=== PATIENT | female | born 1930 | race Hispanic/Latino ===

== ENCOUNTER 2016-12-29 12:52 | Emergency (ER) | payer MEDICARE, BC ==
[2016-12-29 12:52] VITALS: BMI 26.2
[2016-12-29 13:08] VITALS: BP 148/60; PULSE 62; RESP 16; TEMP 98.4; O2SAT 95
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
[2016-12-29] MEDS ORDERED: Naproxen 500 MG TAB PO ONE (13:48)
[2016-12-29] MEDS ORDERED: Naproxen 500 MG TAB PO STA (14:55)
--- NOTE | 2016-12-29 16:11 | RAD ---
PROCEDURE: Left Ankle Radiographs. HISTORY: Lateral malleolar tenderness following a traumatic event. Bold COMPARISON: None FINDINGS: BONES: Nondisplaced fracture distal fibula. This is below the ankle mortise. The finding is marked on the study for review. JOINTS: Normal. No osteoarthritis. Ankle mortise maintained. Talar dome intact SOFT TISSUES: Soft tissue swelling attests to the acuity of the fracture. OTHER FINDINGS: None. IMPRESSION: Acute distal fibular fracture. Otherwise unremarkable study.
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
== END 2016-12-29 17:14 | disposition home or self-care (01) ==
LOC: H.ER 12:52
DX: S82.832A Other fracture of upper and lower end of left fibula, initial encounter for closed fracture (principal); W22.8XXA Striking against or struck by other objects, initial encounter; Y92.89 Other specified places as the place of occurrence of the external cause

== ENCOUNTER 2017-04-18 12:51 | Emergency (ER) | payer MEDICARE ==
[2017-04-18 12:51] VITALS: BMI 26.2
--- NOTE | 2017-04-18 13:21 | ED PDOC ---
HPI: Abdomen Time Seen by Provider: 04/18/17 13:10 Chief Complaint (Nursing): Abdominal Pain Chief Complaint (Provider): Abdominal Pain History Per: Patient, Family (son) History/Exam Limitations: no limitations Onset/Duration Of Symptoms: Days (x3) Current Symptoms Are (Timing): Still Present Additional Complaint(s): 86 year old female with medical history of CAD and bleeding ulcers, presents to the emergency department with son for an evaluation of black stools associated with upper abdominal pain and generalized weakness ongoing for 3 days. Denied any chest pain or bloody vomiting. Patient stated she does not use Apirin daily but had taken Aleve twice this week for headaches. PMD: Luis Mcnally MD Past Medical History Reviewed: Historical Data, Nursing Documentation, Vital Signs Vital Signs: Last Vital Signs Temp 97.5 F L 04/18/17 13:00 Pulse 62 04/18/17 13:00 Resp 16 04/18/17 13:00 BP 148/59 L 04/18/17 13:00 Pulse Ox 100 04/18/17 13:38 - Medical History PMH: CAD Denies: Diabetes, HTN - Surgical History Surgical History: Appendectomy - Family History Family History: States: Unknown Family Hx - Social History Current smoker - smoking cessation education provided: No Alcohol: None Drugs: Denies - Home Medications Home Medications: Ambulatory Orders Medication Instructions Recorded Naproxen 250 mg PO BID PRN #10 tab 09/18/14 - Allergies Allergies/Adverse Reactions: Allergies Allergy/AdvReac Type Severity Reaction Status Date / Time codeine Allergy HEADACHE Verified 04/18/17 12:59 Review of Systems ROS Statement: Except As Marked, All Systems Reviewed And Found Negative Constitutional: Positive for: Weakness Cardiovascular: Negative for: Chest Pain Gastrointestinal: Positive for: Nausea, Abdominal Pain (upper), Melena. Negative for: Vomiting, Hematemesis Physical Exam - Reviewed Nursing Documentation Reviewed: Yes Vital Signs Reviewed: Yes - Physical Exam Appears: Positive for: Uncomfortable Eye Exam: Positive for: Normal appearance. Negative for: Periorbital swelling, Periorbital tenderness, Conjunctival injection Cardiovascular/Chest: Positive for: Regular Rate, Rhythm, Chest Non Tender. Negative for: Murmur Respiratory: Positive for: Normal Breath Sounds. Negative for: Decreased Breath Sounds, Wheezing, Respiratory Distress Gastrointestinal/Abdominal: Positive for: Normal Exam, Soft. Negative for: Tenderness Rectal: Positive for: Black Stool (dark brown) Neurologic/Psych: Positive for: Alert, fire adjuster II-XII (intact), Oriented - Laboratory Results Result Diagrams: 04/18/17 13:49 04/18/17 13:49 - ECG O2 Sat by Pulse Oximetry: 100 (RA) Pulse Ox Interpretation: Normal Medical Decision Making Medical Decision Making: Initial Impression: Melena Initial Plan: * Type and screen * CMP * CBC * PTT * PT * Pepcid 50ml IVPB * Occult blood, stool ____ Time: 1321 --Rectal exam performed on patient with certified medical technician as witness. Scribe Attestation: Documented by Skylar Laguerre, acting as a scribe for Liam Jaramillo DO. Provider Scribe Attestation: All medical record entries made by the Scribe were at my direction and personally dictated by me. I have reviewed the chart and agree that the record accurately reflects my personal performance of the history, physical exam, medical decision making, and the department course for this patient. I have also personally directed, reviewed, and agree with the discharge instructions and disposition. Disposition - Clinical Impression Clinical Impression: Abdominal discomfort - Patient ED Disposition Is Patient to be Admitted: No Doctor Will See Patient In The: Office - Disposition Disposition: Routine/Home Disposition Time: 15:10 Condition: STABLE Additional Instructions: No GI bleeding has been detected and labs are stable. Stable for discharge. STOP Naproxen Forms: [employer] (Latvian)
[2017-04-18 13:55] LABS: BASO % 0.6 % (0.0-2.0); EOS # 0.1 K/uL (0.0-0.7); EOS % 2.6 % (0.0-4.0); HEMOGLOBIN 13.7 g/dL (12.0-16.0); LYMPH # 1.9 K/uL (1.0-4.3); LYMPH % 33.3 % (20.0-40.0); MEAN CELL VOLUME 82.9 fl (81.0-99.0); MEAN CORPUSCULAR HEMOGLOBIN 27.9 pg (27.0-31.0); MEAN CORPUSCULAR HGB CONC 33.7 g/dL (33.0-37.0); MEAN PLATELET VOLUME 9.1 fl (7.2-11.7); MONO # 0.5 K/uL (0.0-0.8); MONO % 8.5 % (0.0-10.0); NEUT # 3.2 K/uL (1.8-7.0); NRBC % 0.2 % (0.0-0.0); RBC 4.91 Mil/uL (3.80-5.20); RED CELL DISTRIBUTION WIDTH 14.1 % (11.5-14.5); WHITE BLOOD COUNT 5.8 K/uL (4.8-10.8)
[2017-04-18 14:02] LABS: PARTIAL THROMBOPLASTIN TIME 30.6 Seconds (25.6-37.1); PROTHROMBIN TIME 11.6 Seconds (9.8-13.1)
[2017-04-18 14:12] LABS: ALB/GLOB RATIO 1.4 (1.0-2.1); ALT/SGPT 29 U/L (9-52); AST/SGOT 26 U/L (14-36); BLOOD UREA NITROGEN 24 mg/dl (7-17); GFR AFRICAN-AMERICAN > 60; GFR NON-AFRICAN AMERICAN > 60
[2017-04-18 15:49] VITALS: BP 132/78; PULSE 75; RESP 14; TEMP 98; O2SAT 99
== END 2017-04-18 15:48 | disposition home or self-care (01) ==
LOC: H.ER 12:51
DX: R10.10 Upper abdominal pain, unspecified (principal); I25.10 Atherosclerotic heart disease of native coronary artery without angina pectoris
CPT/HCPCS: 80053; 85025; 85610; 85730; 86850; 86900; 96374; 99284; G0328

== ENCOUNTER 2017-07-23 12:40 | Observation (INO) | payer MEDICARE ==
[2017-07-23 12:40] VITALS: BMI 26.2
[2017-07-23] MEDS ORDERED: Sodium Chloride 0.9% 500 ML IV STA (12:54)
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
[2017-07-23 13:23] LABS: BASO # 0.1 K/uL (0.0-0.2); BASO % 0.8 % (0.0-2.0); EOS # 0.3 K/uL (0.0-0.7); EOS % 4.8 % (0.0-4.0); HEMOGLOBIN 13.7 g/dL (12.0-16.0); LYMPH # 2.4 K/uL (1.0-4.3); MEAN CELL VOLUME 83.5 fl (81.0-99.0); MEAN CORPUSCULAR HEMOGLOBIN 28.2 pg (27.0-31.0); MEAN CORPUSCULAR HGB CONC 33.8 g/dL (33.0-37.0); MEAN PLATELET VOLUME 8.8 fl (7.2-11.7); MONO # 0.5 K/uL (0.0-0.8); MONO % 8.1 % (0.0-10.0); NEUT % 48.3 % (50.0-75.0); RBC 4.84 Mil/uL (3.80-5.20); RED CELL DISTRIBUTION WIDTH 13.9 % (11.5-14.5); WHITE BLOOD COUNT 6.3 K/uL (4.8-10.8)
--- NOTE | 2017-07-23 13:30 | RAD ---
HISTORY: dyspnea COMPARISON: Chest radiograph dated 02/25/2009. FINDINGS: LUNGS: No active pulmonary disease. PLEURA: No significant pleural effusion identified, no pneumothorax apparent. CARDIOVASCULAR: Atherosclerotic aortic calcifications. Cardiomediastinal silhouette within normal limits. OSSEOUS STRUCTURES: Unchanged. VISUALIZED UPPER ABDOMEN: Normal. OTHER FINDINGS: None. IMPRESSION: No active disease.
[2017-07-23 13:32] LABS: INR 1.1 (0.9-1.2); PARTIAL THROMBOPLASTIN TIME 31.9 Seconds (25.6-37.1); PROTHROMBIN TIME 12.1 Seconds (9.8-13.1)
[2017-07-23 13:33] LABS: ALB/GLOB RATIO 1.3 (1.0-2.1); ALBUMIN 3.9 g/dL (3.5-5.0); ALT/SGPT 33 U/L (9-52); AST/SGOT 22 U/L (14-36); BLOOD UREA NITROGEN 19 mg/dl (7-17); CALCIUM 9.5 mg/dL (8.4-10.2); GFR AFRICAN-AMERICAN > 60; GFR NON-AFRICAN AMERICAN > 60
--- NOTE | 2017-07-23 20:48 | CP.PCM.HP ---
History of Present Illness - History of Present Illness History of Present Illness: 86 yo admitted for atypical chest pain Present on Admission - Present on Admission Any Indicators Present on Admission: No Past Patient History - Past Social History Alcohol: None Drugs: Denies - CARDIAC Hx Cardiac Disorders: Yes - PULMONARY Hx Respiratory Disorders: No - NEUROLOGICAL Hx Neurological Disorder: No - HEENT Hx HEENT Problems: No - RENAL Hx Chronic Kidney Disease: No - ENDOCRINE/METABOLIC Hx Endocrine Disorders: No - HEMATOLOGICAL/ONCOLOGICAL Hx Blood Disorders: No - INTEGUMENTARY Hx Dermatological Problems: No - MUSCULOSKELETAL/RHEUMATOLOGICAL Hx Musculoskeletal Disorders: No - GENITOURINARY/GYNECOLOGICAL Hx Genitourinary Disorders: No - PSYCHIATRIC Hx Psychophysiologic Disorder: No - SURGICAL HISTORY Hx Appendectomy: Yes - ANESTHESIA Hx Anesthesia: Yes Hx Anesthesia Reactions: No Meds Allergies/Adverse Reactions: Allergies Allergy/AdvReac Type Severity Reaction Status Date / Time codeine Allergy HEADACHE Verified 04/18/17 12:59 Physical Exam - Respiratory Exam Respiratory Exam: NORMAL BREATHING PATTERN - Cardiovascular Exam Cardiovascular Exam: REGULAR RHYTHM - GI/Abdominal Exam GI & Abdominal Exam: Normal Bowel Sounds Results - Vital Signs Recent Vital Signs: Last Vital Signs Temp 98.4 F 07/23/17 20:04 Pulse 60 07/23/17 20:04 Resp 18 07/23/17 20:04 BP 164/75 H 07/23/17 20:04 Pulse Ox 98 07/23/17 20:04 - Labs Result Diagrams: 07/23/17 13:15 07/23/17 13:15 Labs: Laboratory Results - last 24 hr 07/23/17 07/23/17 07/23/17 13:15 13:15 13:15 WBC 6.3 RBC 4.84 Hgb 13.7 Hct 40.4 MCV 83.5 MCH 28.2 MCHC 33.8 RDW 13.9 Plt Count 214 MPV 8.8 Neut % (Auto) 48.3 L Lymph % (Auto) 38.0 Clarke % (Auto) 8.1 Eos % (Auto) 4.8 H Baso % (Auto) 0.8 Neut # (Auto) 3.0 Lymph # (Auto) 2.4 Clarke # (Auto) 0.5 Eos # (Auto) 0.3 Baso # (Auto) 0.1 PT 12.1 INR 1.1 APTT 31.9 Sodium 143 Potassium 4.3 Chloride 103 Carbon Dioxide 26 Anion Gap 18 BUN 19 H Creatinine 0.7 Est GFR ( Amer) > 60 Est GFR (Non-Af Amer) > 60 Random Glucose 82 Calcium 9.5 Total Bilirubin 0.6 AST 22 ALT 33 Alkaline Phosphatase 45 Troponin I < 0.0120 Total Protein 7.0 Albumin 3.9 Globulin 3.1 Albumin/Globulin Ratio 1.3 Assessment & Plan - Assessment and Plan (Free Text) Assessment: atypical chest pain EKG CE Cardilogy Anxiety - Date & Time Date: 07/22/17 Time: 22:22
--- NOTE | 2017-07-23 21:18 | CP.PCM.CON ---
History of Present Illness - History of Present Illness History of Present Illness: THE PATIENT IS AN 86 YEAR OLD FEMALE WITH A HISTORY OF CAD, HYPERTENSION AND HYPERLIPIDEMIA. SHE HAD A NSTEMI IN 2007 AND WAS ADMITTED TO [facility] AND THEN TRANSFERRED TO [facility] AND HAD A CARDIAC AATH AND IT SHOWED NON- OBSTRUCTIVE CAD AND MEDICAL TREATMENT WAS RECOMMENDED. SHE HAD HER LAST STRESS TEST IN 2013 THAT DID NOT SHOW ANY ISCHEMIA. 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 SHE HAS BEEN PAIN FREE UNTIL YESTERDAY WHEN SHE STATES THAT SHE HAD ABOUT 5/10 CHEST PRESSURE, NAUSEA AND WEAKNESS. THE PAIN LASTED ALL DAY AND THIS MORNING FOR ABOUT THREE HOURS IT WAS 9/10 SO SHE CALLED THE AMBULANCE AND WAS GIVEN 2 SL NITROGLYCERIN TABS AND AN ASPIRIN AND BROUGHT TO THE ER AND SHE WAS PAIN FREE SHORTLY AFTER ARRIVAL AND HAS REMAINED PAIN FREE SINCE. I WAS CALLED BY DR MAHAN TO SEE HER. SHE WAS ONLY TAKING TRICOR AND STOPPED HER ASPIRIN, SIMVASTAIN AND BETA BLOCKERS. Past Patient History - Past Social History Alcohol: None Drugs: Denies - CARDIAC Hx Cardiac Disorders: Yes - PULMONARY Hx Respiratory Disorders: No - NEUROLOGICAL Hx Neurological Disorder: No - HEENT Hx HEENT Problems: No - RENAL Hx Chronic Kidney Disease: No - ENDOCRINE/METABOLIC Hx Endocrine Disorders: No - HEMATOLOGICAL/ONCOLOGICAL Hx Blood Disorders: No - INTEGUMENTARY Hx Dermatological Problems: No - MUSCULOSKELETAL/RHEUMATOLOGICAL Hx Musculoskeletal Disorders: No - GENITOURINARY/GYNECOLOGICAL Hx Genitourinary Disorders: No - PSYCHIATRIC Hx Psychophysiologic Disorder: No - SURGICAL HISTORY Hx Appendectomy: Yes - ANESTHESIA Hx Anesthesia: Yes Hx Anesthesia Reactions: No Meds Allergies/Adverse Reactions: Allergies Allergy/AdvReac Type Severity Reaction Status Date / Time codeine Allergy HEADACHE Verified 04/18/17 12:59 - Medications Medications: Current Medications Atorvastatin Calcium (Lipitor) 10 mg PO HS SUZAN Enoxaparin Sodium (Lovenox) 30 mg SC DAILY SUZAN PRN Reason: Protocol Physical Exam - Respiratory Exam Respiratory Exam: Clear to Auscultation Bilateral - Cardiovascular Exam Cardiovascular Exam: REGULAR RHYTHM, +S1, +S2 - Extremities Exam Additional comments: NO EDEMA - Additional Findings Additional findings: EKG NSR, I PAC TROPONIN # 1 IS NORMAL CXR NAD Results - Vital Signs Recent Vital Signs: Last Vital Signs Temp 98.4 F 05/24/18 20:04 Pulse 60 07/23/17 20:04 Resp 18 07/23/17 20:04 BP 164/75 H 07/23/17 20:04 Pulse Ox 98 07/23/17 20:04 - Labs Result Diagrams: 07/23/17 13:15 07/23/17 13:15 Labs: Laboratory Results - last 24 hr 07/23/17 07/23/17 07/23/17 13:15 13:15 13:15 WBC 6.3 RBC 4.84 Hgb 13.7 Hct 40.4 MCV 83.5 MCH 28.2 MCHC 33.8 RDW 13.9 Plt Count 214 MPV 8.8 Neut % (Auto) 48.3 L Lymph % (Auto) 38.0 Mccracken % (Auto) 8.1 Eos % (Auto) 4.8 H Baso % (Auto) 0.8 Neut # (Auto) 3.0 Lymph # (Auto) 2.4 Mccracken # (Auto) 0.5 Eos # (Auto) 0.3 Baso # (Auto) 0.1 PT 12.1 INR 1.1 APTT 31.9 Sodium 143 Potassium 4.3 Chloride 103 Carbon Dioxide 26 Anion Gap 18 BUN 19 H Creatinine 0.7 Est GFR ( Amer) > 60 Est GFR (Non-Af Amer) > 60 Random Glucose 82 Calcium 9.5 Total Bilirubin 0.6 AST 22 ALT 33 Alkaline Phosphatase 45 Troponin I < 0.0120 Total Protein 7.0 Albumin 3.9 Globulin 3.1 Albumin/Globulin Ratio 1.3 Assessment & Plan - Assessment and Plan (Free Text) Assessment: CAD HISTORY AND NOW WITH CHEST PAIN THAT WAS RELIEVED WITH SL NITROGLYCERIN HYPERTENSION HYPERLIPIDEMIA Plan: THE PATIENT WAS ADMITTED TO ON OBSERVATION O2, ASPIRIN, ATORVASTATIN, TRICOR, BETA LAURA AND LOVENOX SERIAL EKGS AND TROPONINS, LIPID PROFILE, TELEMETRY ECHOCARDIOGRAM
[2017-07-24 05:51] LABS: TROPONIN I 0.018 ng/mL (0.00-0.120)
--- NOTE | 2017-07-24 07:17 | CARD ---
APPROVED REPORT EKG Measurement Heart [id number] <Conclusion> Sinus rhythm with premature atrial complexes Left anterior fascicular block Nonspecific ST abnormality Abnormal ECG
[2017-07-24 08:17] VITALS: RESP 20; O2SAT 96
--- NOTE | 2017-07-24 08:56 | CARD ---
APPROVED REPORT EKG Measurement Heart [id number] HI [id number] <Conclusion> Sinus bradycardia Left axis deviation Abnormal ECG
[2017-07-24] MEDS ORDERED: Enoxaparin 30 mg Syringe SC SCH (09:00)
[2017-07-24] MEDS ORDERED: Enoxaparin 40 mg Syringe SC SCH (09:00)
--- NOTE | 2017-07-24 09:42 | CARD ---
APPROVED REPORT EXAM: Two-dimensional and M-mode echocardiogram with Doppler and color Doppler. Other Information Quality : AverageRhythm : NSR INDICATION Cardiac Disease: CAD Chest Pain 2D DIMENSIONS IVSd1.07 (0.7-1.1cm)LVDd3.59 (3.9-5.9cm) LVOT Diameter2.12 (1.8-2.4cm)PWd0.74 (0.7-1.1cm) IVSs1.18 (0.8-1.2cm)LVDs2.32 (2.5-4.0cm) FS (%) 35.6 %PWs1.12 (0.8-1.2cm) M-Mode DIMENSIONS Left Atrium (MM)2.81 (2.5-4.0cm)IVSd1.10 (0.7-1.1cm) Aortic Root2.81 (2.2-3.7cm)LVDd3.81 (4.0-5.6cm) Aortic Cusp Exc.1.71 (1.5-2.0cm)PWd1.24 (0.7-1.1cm) IVSs1.65 cmFS (%) 38 % LVDs2.34 (2.0-3.8cm)PWs1.43 cm Mitral Valve MV E Yjjofaxu60.9cm/sMV DECEL [id number] A Stmvxuqz57.5cm/s MV [id number]/A ratio1.0MVA (PHT)3.13cm2 TDI Lateral E' Peak V9.29cm/sMedial E' Peak V4.97cm/sE/Lateral E'6.3 E/Medial E'11.9 Pulmonary Valve PV Peak Ekfvsgul02.8cm/s LEFT VENTRICLE The left ventricle is normal size. There is mild concentric left ventricular hypertrophy. Left ventricle systolic function is normal. The Ejection Fraction is >70%. There is normal LV segmental wall motion. Transmitral Doppler flow pattern is Grade I-abnormal relaxation pattern. RIGHT VENTRICLE The right ventricle is normal size. There is normal right ventricular wall thickness. The right ventricular systolic function is normal. ATRIA The left atrium size is normal. The right atrium size is normal. AORTIC VALVE The aortic valve is normal in structure. No aortic regurgitation is present. There is no aortic valvular stenosis. MITRAL VALVE The mitral valve is normal in structure. There is no evidence of mitral valve prolapse. There is no mitral valve stenosis. There is no mitral valve regurgitation noted. TRICUSPID VALVE The tricuspid valve is normal in structure. There is no tricuspid valve regurgitation noted. PULMONIC VALVE The pulmonary valve is normal in structure. There is no pulmonic valvular regurgitation. GREAT VESSELS The aortic root is normal in size. The IVC is normal in size and collapses >50% with inspiration. PERICARDIAL EFFUSION The pericardium appears normal. <Conclusion> The left ventricle is normal size. There is mild concentric left ventricular hypertrophy. There is normal LV segmental wall motion. Left ventricle systolic function is normal. The Ejection Fraction is >70%. Transmitral Doppler flow pattern is Grade I-abnormal relaxation pattern.
--- NOTE | 2017-07-24 10:57 | CP.PCM.PN ---
Subjective - Date & Time of Evaluation Date of Evaluation: 07/24/17 Time of Evaluation: 22:22 - Subjective Subjective: Above noted Objective - Vital Signs/Intake and Output Vital Signs (last 24 hours): Temp Pulse Resp BP Pulse Ox 97.7 F 59 L 20 127/72 96 07/24/17 08:16 07/24/17 08:16 07/24/17 08:16 07/24/17 08:16 07/24/17 08:16 - Medications Medications: Current Medications Aspirin (Ecotrin) 81 mg PO DAILY [facility] Last Admin: 07/24/17 08:48 Dose: 81 mg Atorvastatin Calcium (Lipitor) 10 mg PO HS [facility] Last Admin: 07/23/17 21:52 Dose: 10 mg Enoxaparin Sodium (Lovenox) 40 mg SC DAILY [facility] PRN Reason: Protocol Fenofibrate (Tricor) 145 mg PO DAILY [facility] Last Admin: 07/24/17 08:48 Dose: 145 mg Metoprolol Tartrate (Lopressor) 12.5 mg PO Q12 [facility] Last Admin: 07/23/17 21:52 Dose: 12.5 mg - Labs Labs: 07/23/17 13:15 07/23/17 13:15 PT 12.1 Seconds (9.8-13.1) 07/23/17 13:15 INR 1.1 (0.9-1.2) 07/23/17 13:15 APTT 31.9 Seconds (25.6-37.1) 07/23/17 13:15 - Respiratory Exam Respiratory Exam: NORMAL BREATHING PATTERN - Cardiovascular Exam Cardiovascular Exam: REGULAR RHYTHM - GI/Abdominal Exam GI & Abdominal Exam: Normal Bowel Sounds Assessment and Plan - Assessment and Plan (Free Text) Assessment: Aypical chest pain EKG CE Cardilogy Anxiety
--- NOTE | 2017-07-24 11:15 | CP.PCM.PN ---
Subjective - Date & Time of Evaluation Date of Evaluation: 07/24/17 Time of Evaluation: 11:00 - Subjective Subjective: NO FURTHER CHEST PAIN NO SOB FEELS GOOD TODAY Objective - Vital Signs/Intake and Output Vital Signs (last 24 hours): Temp Pulse Resp BP Pulse Ox 97.7 F 59 L 20 127/72 96 07/24/17 08:16 07/24/17 08:16 07/24/17 08:16 07/24/17 08:16 07/24/17 08:16 - Medications Medications: Current Medications Aspirin (Ecotrin) 81 mg PO DAILY [facility] Last Admin: 07/24/17 08:48 Dose: 81 mg Atorvastatin Calcium (Lipitor) 10 mg PO HS [facility] Last Admin: 07/23/17 21:52 Dose: 10 mg Enoxaparin Sodium (Lovenox) 40 mg SC DAILY [facility] PRN Reason: Protocol Fenofibrate (Tricor) 145 mg PO DAILY [facility] Last Admin: 07/24/17 08:48 Dose: 145 mg Metoprolol Tartrate (Lopressor) 12.5 mg PO Q12 [facility] Last Admin: 07/23/17 21:52 Dose: 12.5 mg - Labs Labs: 07/23/17 13:15 07/23/17 13:15 PT 12.1 Seconds (9.8-13.1) 07/23/17 13:15 INR 1.1 (0.9-1.2) 07/23/17 13:15 APTT 31.9 Seconds (25.6-37.1) 07/23/17 13:15 - Respiratory Exam Respiratory Exam: Clear to Ausculation Bilateral - Cardiovascular Exam Cardiovascular Exam: REGULAR RHYTHM, +S1, +S2 - Extremities Exam Additional comments: NO LE EDEMA - Additional Findings Additional findings: EKG SINUS, NO ACUTE CHANGES TROPONIN NORMAL X 3 THE PATIENT RECEIVED METOPROLOL LAST NIGHT AND SHE HAD 2 PAUSES OF ~ 2.2 TO 2.3 SECONDS SO THE METOPROLOL WAS DISCONTINUED AND SHE HAS STAYED IN SINUS RHYTHM SINCE. NO LONG PAUSES. EKG THIS AM SINUS RHYTHM WITHOUT ANY ACUTE CHANGES ECHOCARDIOGRAM WITH NORMAL LV SYSTOLIC FUNCTION Assessment and Plan - Assessment and Plan (Free Text) Assessment: CAD HISTORY. PRESENTLY ADMITTED WITH CHEST PAIN BUT IS NOW CHEST PAIN FREE AND THE EKGS AND TROPONINS ARE NEGATIVE. HYPERTENSION HISTORY-BLOOD PRESSURE HAS BEEN STABLE ON THIS ADMISSION HYPERLIPIDEMIA Plan: THE PATIENT CAN'T COMPLETE A REGULAR STRESS TEST AND REFUSES TO DO A PHARMACOLOGICAL STRESS TEST STATING THAT SHE IS CLAUSTROPHOBIC AND CAN'T GO UNDER A NUCLEAR CAMERA. SHE ALSO DECLINES TO HAVE A CARDIAC CATHETERIZATION BUT WAS URGED TO DO ONE IF SHE HAS CHEST PAIN AGAIN THE PATIENT CAN BE DISCHARGED ON SIMVASTATIN 20 MGS DAILY, TRICOR 145 MGS DAILY AND ASPIRIN 81 MGS DAILY METOPROLOL WAS DISCONTINUED STATED ABOVE
[2017-07-24 12:26] VITALS: BP 123/67; PULSE 60; TEMP 97.6
== END 2017-07-24 13:30 | disposition home or self-care (01) ==
LOC: H.ER 12:40 → UNDOADMOB 14:19 → H.ERHOLD 14:19 → H.TEL 18:29
PROVIDERS: ADMIT Family Medicine Geriatric Medicine; ATTEND Family Medicine Geriatric Medicine
DX: R07.89 Other chest pain (principal); I25.10 Atherosclerotic heart disease of native coronary artery without angina pectoris; I10 Essential (primary) hypertension; E78.5 Hyperlipidemia, unspecified; I25.2 Old myocardial infarction; Z88.6 Allergy status to analgesic agent; E78.00 Pure hypercholesterolemia, unspecified; F41.9 Anxiety disorder, unspecified; Z98.61 Coronary angioplasty status; Z53.20 Procedure and treatment not carried out because of patient's decision for unspecified reasons
CPT/HCPCS: 36415; 71045; 80053; 80061; 84443; 84484; 85025; 85610; 85730; 93005; 93306; 99284; G0378; J7040

== ENCOUNTER 2017-09-15 07:37 | Day surgery (SDC) | payer MEDICARE ==
[2017-08-31 11:24] VITALS: BMI 23.3
[2017-09-15] MEDS ORDERED: Lactated Ringer's 1,000 ML IV ONE (09:02)
[2017-09-15] MEDS ORDERED: Phenylephrine 2.5% Opht Soln OD ONE (09:13)
[2017-09-15] MEDS ORDERED: Flurbiprofen 0.03% Opht SOLN OD SCH (09:15)
[2017-09-15] MEDS ORDERED: Tropicamide 1% Opht 150 DROP/15 ML OD ONE (09:27)
[2017-09-15] MEDS ORDERED: EPINEPHrine 1 mg/ml (1:1000) Inj ONE (09:50)
[2017-09-15] MEDS ORDERED: Tetracaine 0.5% Ophth 2 ML BOTTLE ONE (09:50)
[2017-09-15] MEDS ORDERED: Maxitrol Opht Susp ONE (09:50)
[2017-09-15] MEDS ORDERED: Pilocarpine 1% Opht Soln ONE (09:51)
[2017-09-15] MEDS ORDERED: CA CL/K CL/NA CL 500 ML IR ONE (09:51)
[2017-09-15] MEDS ORDERED: STERILE IRRIGATING SOLUTION 45 ML IR ONE (09:52)
[2017-09-15] MEDS ORDERED: Chondroitin/Hyaluronate Opth Syringe KIT (0.55 ml-0.5 ml) IO ONE ×2 (09:52→11:10)
[2017-09-15] MEDS ORDERED: Povidone Iodine 5% Opht SOLUTION ONE (09:57)
[2017-09-15] MEDS ORDERED: Carbachol 0.01% IO ONE ×2 (09:59→11:10)
[2017-09-15] MEDS ORDERED: Midazolam 2 MG/2 ML VIAL ONE (10:57)
[2017-09-15] MEDS ORDERED: Lidocaine 2% Inj (20ml) IJ ONE (11:10)
[2017-09-15] MEDS ORDERED: Lidocaine 1% 20 MG/2 ML PF AMP EP ONE (11:10)
[2017-09-15] MEDS ORDERED: Povidone Iodine 5% Opht SOLUTION OU ONE (11:10)
[2017-09-15] MEDS ORDERED: EPINEPHrine 1 mg/ml (1:1000) Inj IV ONE (11:10)
[2017-09-15] MEDS ORDERED: Pilocarpine 1% Opht Soln OD ONE (11:10)
[2017-09-15] MEDS ORDERED: Tetracaine 0.5% Ophth 2 ML BOTTLE OU ONE (11:10)
[2017-09-15] MEDS ORDERED: Maxitrol Opht Susp OD ONE (11:10)
[2017-09-15 14:36] VITALS: RESP 18
[2017-09-15 14:37] VITALS: BP 130/60; PULSE 62; TEMP 98.3; O2SAT 99
--- NOTE | 2017-09-15 15:21 | CARD ---
APPROVED REPORT Date of service: 09/15/2017 EKG Measurement Heart [id number] <Conclusion> Sinus bradycardia Left axis deviation Abnormal ECG
--- NOTE | 2017-09-16 09:05 | OP ---
PROCEDURE DATE: 09/15/17 SURGEON: SINGH PEREZ MD ANESTHESIOLOGIST: RUTH LOUIS MD ANESTHESIA: LOCAL / IV SEDATION PREOPERATIVE DIAGNOSIS: CATARACT RIGHT EYE. POSTOPERATIVE DIAGNOSIS: CATARACT RIGHT EYE. OPERATION: CLEAR CORNEAL PHACOEMULSIFICATION WITH LENS IMPLANT RIGHT EYE. PREPARATION AND PROCEDURE: After the patient was prepped and draped in the usual manner for sterile ophthalmic surgery, local IV sedation was administered ; eye seals were applied to the upper and lower lid margins and an adult wire lid speculum was placed within the lids. Under microsurgical control, a two- step clear corneal incision was made into the anterior chamber. The initial incision was perpendicular to the corneal plane. The second incision with the keratome was placed at a 45-degree angle to the first incision. One cc of one percent Xylocaine MPF was instilled into the anterior chamber to achieve proper intraocular anesthesia. At this time, the Viscoelastic was injected into the anterior chamber for protection of the endothelium and for maintenance of the chamber depth. A 360-degree continuous curvilinear capsulorrhexis was performed using a pre-bent 25-gauge needle. Hydrodissection and hydrodelineation were performed using a Valladares cannula and balanced salt solution. Utilizing the tip of the Valladares cannula, the nucleus was rotated freely within the capsular bag. A standard one-handed phacoemulsification was utilized at this time for sculpting and rotating of the nucleus. The nucleus was fragmented in its entirety and aspirated without any consequence. A standard I&A was carried out for the residual cortical material. No residual material was noted within the capsular bag. The posterior capsule was noted to be clear. Additional Viscoelastic was injected into the capsular bag in preparation for lens implantation. After this has been satisfactorily achieved the intraocular lens injected through the corneal incision into the capsular bag. The intraocular lens was manipulated until it was properly oriented and the Viscoelastic was evacuated from the capsular bag and anterior chamber. The anterior chamber was reformed with balanced salt solution. The corneal incision was irrigated with BSS. The intraocular pressure was found to be within normal limits. This terminated the procedure. The speculum and lid drapes were removed. TobraDex ophthalmic suspension and Pilocarpine 1% drops one drop was applied to the eye. POSTOPERATIVE CONDITION: The patient was brought to the Post anesthesia Recovery area with stable vital signs. DSINGH LARSON MD
== END 2017-09-15 13:30 | disposition home or self-care (01) ==
LOC: H.OPSURG 07:37
PROVIDERS: ATTEND Ophthalmology
DX: H25.811 Combined forms of age-related cataract, right eye (principal); I25.10 Atherosclerotic heart disease of native coronary artery without angina pectoris; E78.5 Hyperlipidemia, unspecified; I10 Essential (primary) hypertension; I25.2 Old myocardial infarction
CPT/HCPCS: 66984; 93005; J0171; J2250; J3010; J7120; V2632

== ENCOUNTER 2017-11-03 08:17 | Day surgery (SDC) | payer BC, MEDICARE ==
[2017-11-03] MEDS ORDERED: Tetracaine 0.5% Ophth 2 ML BOTTLE ONE (08:24)
[2017-11-03] MEDS ORDERED: Maxitrol Opht Susp ONE (08:24)
[2017-11-03] MEDS ORDERED: EPINEPHrine 1 mg/ml (1:1000) Inj ONE (08:24)
[2017-11-03] MEDS ORDERED: Pilocarpine 1% Opht Soln ONE (08:24)
[2017-11-03] MEDS ORDERED: Lidocaine 1% 20 MG/2 ML PF AMP ONE (08:24)
[2017-11-03] MEDS ORDERED: Carbachol 0.01% IO ONE (08:25)
[2017-11-03] MEDS ORDERED: CA CL/K CL/NA CL 500 ML IR ONE (08:25)
[2017-11-03] MEDS ORDERED: STERILE IRRIGATING SOLUTION 45 ML IR ONE (08:25)
[2017-11-03] MEDS ORDERED: Chondroitin/Hyaluronate Opth Syringe KIT (0.55 ml-0.5 ml) IO ONE ×2 (08:25→13:30)
[2017-11-03] MEDS ORDERED: Povidone Iodine 5% Opht SOLUTION ONE (08:26)
[2017-11-03 08:51] VITALS: RESP 20
[2017-11-03 08:56] VITALS: BMI 21.9
[2017-11-03] MEDS ORDERED: Phenylephrine 2.5% Opht Soln OD ONE (08:59)
[2017-11-03] MEDS ORDERED: Tropicamide 1% Opht 150 DROP/15 ML LEFTEYE SCH (09:00)
[2017-11-03] MEDS ORDERED: Flurbiprofen 0.03% Opht SOLN OS SCH (09:00)
[2017-11-03] MEDS ORDERED: Lactated Ringer's 1,000 ML IV ONE (09:32)
[2017-11-03] MEDS ORDERED: Flurbiprofen 0.03% Opht SOLN OU ONE (09:33)
[2017-11-03] MEDS ORDERED: Tropicamide 1% Opht 150 DROP/15 ML OS ONE (09:45)
[2017-11-03] MEDS ORDERED: Lidocaine 2% MPF (5 ml) Inj ONE (12:56)
[2017-11-03] MEDS ORDERED: Midazolam 2 MG/2 ML VIAL ONE (13:19)
[2017-11-03] MEDS ORDERED: BSS 15 ML SOL IR ONE ×2 (13:30→13:35)
[2017-11-03] MEDS ORDERED: Maxitrol Opht Susp OS ONE ×2 (13:35→13:37)
[2017-11-03 14:50] VITALS: TEMP 97.7; O2SAT 98
[2017-11-03 15:06] VITALS: BP 153/66; PULSE 62
--- NOTE | 2017-11-04 08:00 | OP ---
PROCEDURE DATE: 11/03/2017 SURGEON: SINGH PEREZ MD ANESTHESIOLOGIST: SULLY ALONZO MD ANESTHESIA: LOCAL / IV SEDATION PREOPERATIVE DIAGNOSIS: CATARACT LEFT EYE. POSTOPERATIVE DIAGNOSIS: CATARACT LEFT EYE. OPERATION: CATARACT EXTRACTION WITH A POSTERIOR LENS IMPLANT ( PHACOEMULSIFICATION) AND ANTERIOR VITRECTOMY LEFT EYE. PREPARATION AND PROCEDURE: After facial akinesia and retrobulbar block were induced, the patient was prepped and draped in the usual manner for sterile ophthalmic surgery. An adult wire lid speculum was placed into the lid of the eye. A #4-0 silk suture was placed into the belly of the superior rectus muscle for fixation of the globe. A mini-peritomy at the 12 o'clock position was fashioned with a sharp tipped Carl scissor and atraumatic forceps. The fornix-based mini-peritomy was reflected superiorly and hemostasis was obtained with wet field bipolar cautery. A three-step incision was fashioned using a crescent blade, 2.5 mm posterior to the surgical sulcus. The anterior chamber was entered using the 3.2 blade. Viscoelastic was injected into the anterior chamber for protection of the cornea endothelium and maintenance of the anterior chamber depth. An anterior capsulotomy was performed in a capsular fashion using a pre-bent 25 gauge needle. After the capsulotomy was finished, hydrodissection and hydrodelamination was carried out. Using the Phaco- Emulsifier hand piece, phacoemulsification was carried out at this time. During phacoemulsification, a rent was noted in the posterior capsule with prolapse of syneretic vitreous into the anterior chamber. An anterior vitrectomy was carried out with the disposable Cavitron anterior vitrectomy hand piece, in addition to removal of the residual cortical material. At this time, the anterior chamber was checked for any residual vitreous strands and none were noted. A posterior chamber lens was then placed within the capsular bag. Miochol was injected into the anterior chamber for myosis and again the pupil was reexamined for any evidence of vitreous and none was noted. The Viscoelastic was evacuated from the anterior chamber using the irrigation and aspiration hand piece. Balanced salt solution was injected into the anterior chamber for reestablishment of the anterior chamber space. The wound again was checked for any leaks and none were noted. The conjunctiva was reflected superiorly up to the surgical sulcus. The #4-0 silk suture was removed and Maxitrol drops were applied to the eye and a light patch was then applied. POSTOPERATIVE CONDITION: The patient was brought to the Post anesthesia Recovery area with stable vital signs. SINGH PEREZ MD
== END 2017-11-03 15:50 | disposition home or self-care (01) ==
LOC: H.OPSURG 08:17
PROVIDERS: ATTEND Ophthalmology
DX: H26.9 Unspecified cataract (principal); H43.02 Vitreous prolapse, left eye
CPT/HCPCS: 66984; 67010; J0171; J2250; J3010; J7120; V2632